=== PATIENT | male | born 1980 | race Two or more races ===

== ENCOUNTER 2018-04-02 11:07 | Outpatient (CLI) | payer OTHER | END 2018-04-02 11:32 | disposition home or self-care (01) | LOC: LAB 11:07 | DX: D68.62 Lupus anticoagulant syndrome (principal); D68.8 Other specified coagulation defects; D50.8 Other iron deficiency anemias; D51.8 Other vitamin B12 deficiency anemias; I10 Essential (primary) hypertension; K90.89 Other intestinal malabsorption; N39.0 Urinary tract infection, site not specified; E03.8 Other specified hypothyroidism ==

== ENCOUNTER 2018-07-23 11:53 | Outpatient (CLI) | payer OTHER | END 2018-07-23 12:08 | disposition home or self-care (01) | LOC: LAB 11:53 | DX: N39.0 Urinary tract infection, site not specified (principal); D51.3 Other dietary vitamin B12 deficiency anemia; D68.8 Other specified coagulation defects; M32.8 Other forms of systemic lupus erythematosus; E55.9 Vitamin D deficiency, unspecified; D50.8 Other iron deficiency anemias; D51.8 Other vitamin B12 deficiency anemias; I10 Essential (primary) hypertension; D55.0 Anemia due to glucose-6-phosphate dehydrogenase [G6PD] deficiency; D51.1 Vitamin B12 deficiency anemia due to selective vitamin B12 malabsorption with proteinuria; D51.0 Vitamin B12 deficiency anemia due to intrinsic factor deficiency; E03.8 Other specified hypothyroidism; E06.3 Autoimmune thyroiditis; K90.89 Other intestinal malabsorption ==

== ENCOUNTER 2019-12-13 09:32 | Outpatient (CLI) | payer OTHER | END 2019-12-13 11:44 | disposition home or self-care (01) | LOC: LAB 09:32 | PROVIDERS: ATTEND Internal Medicine Hematology & Oncology | DX: D51.1 Vitamin B12 deficiency anemia due to selective vitamin B12 malabsorption with proteinuria (principal); D51.3 Other dietary vitamin B12 deficiency anemia; M32.8 Other forms of systemic lupus erythematosus; D68.8 Other specified coagulation defects; E55.9 Vitamin D deficiency, unspecified; K90.89 Other intestinal malabsorption; D50.8 Other iron deficiency anemias; D51.8 Other vitamin B12 deficiency anemias; I10 Essential (primary) hypertension; E03.8 Other specified hypothyroidism ==

== ENCOUNTER → 2019-12-13 | Outpatient (CLI) | payer OTHER | END | disposition home or self-care (01) | LOC: MAMO-SONO 11:45 → SONOGRAMA 11:49 | PROVIDERS: ATTEND Internal Medicine Hematology & Oncology | DX: E03.8 Other specified hypothyroidism (principal); E04.2 Nontoxic multinodular goiter; D51.1 Vitamin B12 deficiency anemia due to selective vitamin B12 malabsorption with proteinuria; D51.3 Other dietary vitamin B12 deficiency anemia; M32.8 Other forms of systemic lupus erythematosus; D68.8 Other specified coagulation defects; E55.9 Vitamin D deficiency, unspecified; K90.89 Other intestinal malabsorption; E06.3 Autoimmune thyroiditis ==

== ENCOUNTER → 2020-03-12 10:00 | Outpatient (CLI) | payer OTHER | END | disposition home or self-care (01) | LOC: LAB 10:00 | PROVIDERS: ATTEND Internal Medicine Hematology & Oncology | DX: M32.8 Other forms of systemic lupus erythematosus (principal); D68.312 Antiphospholipid antibody with hemorrhagic disorder; N39.0 Urinary tract infection, site not specified; R80.8 Other proteinuria; R94.4 Abnormal results of kidney function studies; D51.1 Vitamin B12 deficiency anemia due to selective vitamin B12 malabsorption with proteinuria; D51.3 Other dietary vitamin B12 deficiency anemia; D68.8 Other specified coagulation defects; E55.9 Vitamin D deficiency, unspecified; K90.89 Other intestinal malabsorption ==

== ENCOUNTER 2020-03-12 11:10 | Outpatient (CLI) | payer OTHER | END 2020-03-12 11:19 | disposition home or self-care (01) | LOC: RAD 11:10 → SONOGRAMA 11:10 | PROVIDERS: ATTEND Internal Medicine Hematology & Oncology | DX: N28.89 Other specified disorders of kidney and ureter (principal); K90.89 Other intestinal malabsorption; D51.1 Vitamin B12 deficiency anemia due to selective vitamin B12 malabsorption with proteinuria; D51.3 Other dietary vitamin B12 deficiency anemia; M32.8 Other forms of systemic lupus erythematosus; D68.8 Other specified coagulation defects; E55.9 Vitamin D deficiency, unspecified ==

== ENCOUNTER 2020-04-08 08:22 | Outpatient (CLI) | payer OTHER | END 2020-04-08 08:32 | disposition home or self-care (01) | LOC: NUCLEAR 08:22 | PROVIDERS: ATTEND Internal Medicine Hematology & Oncology | DX: K82.9 Disease of gallbladder, unspecified (principal) | CPT/HCPCS: 78227; A9537 ==

== ENCOUNTER → 2020-04-13 10:33 | Outpatient (CLI) | payer OTHER | END | disposition home or self-care (01) | LOC: LAB 10:33 | PROVIDERS: ATTEND Internal Medicine Hematology & Oncology | DX: D50.8 Other iron deficiency anemias (principal); R79.89 Other specified abnormal findings of blood chemistry; I10 Essential (primary) hypertension; R74.02 Elevation of levels of lactic acid dehydrogenase [LDH]; K76.89 Other specified diseases of liver; C25.9 Malignant neoplasm of pancreas, unspecified; R97.8 Other abnormal tumor markers; R97.0 Elevated carcinoembryonic antigen [CEA]; D51.1 Vitamin B12 deficiency anemia due to selective vitamin B12 malabsorption with proteinuria; D51.3 Other dietary vitamin B12 deficiency anemia; M32.8 Other forms of systemic lupus erythematosus; D68.8 Other specified coagulation defects; E55.9 Vitamin D deficiency, unspecified; K90.89 Other intestinal malabsorption; K82.8 Other specified diseases of gallbladder ==

== ENCOUNTER 2020-04-16 08:11 | Outpatient (CLI) | payer OTHER | END 2020-04-16 08:17 | disposition home or self-care (01) | LOC: MRI 08:11 | PROVIDERS: ATTEND Internal Medicine Hematology & Oncology | DX: Q61.01 Congenital single renal cyst (principal); K82.8 Other specified diseases of gallbladder; Q61.8 Other cystic kidney diseases; D51.1 Vitamin B12 deficiency anemia due to selective vitamin B12 malabsorption with proteinuria; D51.3 Other dietary vitamin B12 deficiency anemia; M32.8 Other forms of systemic lupus erythematosus; D68.8 Other specified coagulation defects; E55.9 Vitamin D deficiency, unspecified; K90.89 Other intestinal malabsorption | CPT/HCPCS: 74183; A9575; 74182 ==

== ENCOUNTER → 2021-03-23 07:02 | Outpatient (CLI) | payer OTHER | END | disposition home or self-care (01) | LOC: LAB 07:02 | PROVIDERS: ATTEND Internal Medicine Hematology & Oncology | DX: I10 Essential (primary) hypertension (principal); R79.9 Abnormal finding of blood chemistry, unspecified; D50.8 Other iron deficiency anemias; R74.02 Elevation of levels of lactic acid dehydrogenase [LDH]; K76.89 Other specified diseases of liver; C25.7 Malignant neoplasm of other parts of pancreas; R97.8 Other abnormal tumor markers; R97.0 Elevated carcinoembryonic antigen [CEA]; D51.1 Vitamin B12 deficiency anemia due to selective vitamin B12 malabsorption with proteinuria; D51.3 Other dietary vitamin B12 deficiency anemia; M32.8 Other forms of systemic lupus erythematosus; D68.8 Other specified coagulation defects; E55.9 Vitamin D deficiency, unspecified; K90.89 Other intestinal malabsorption; K82.8 Other specified diseases of gallbladder ==

== ENCOUNTER → 2021-08-23 09:11 | Outpatient (CLI) | payer OTHER | END | disposition home or self-care (01) | LOC: LAB 09:11 | PROVIDERS: ATTEND Internal Medicine Hematology & Oncology | DX: D50.8 Other iron deficiency anemias (principal); R79.9 Abnormal finding of blood chemistry, unspecified; I10 Essential (primary) hypertension; R74.02 Elevation of levels of lactic acid dehydrogenase [LDH]; K76.89 Other specified diseases of liver; R70.0 Elevated erythrocyte sedimentation rate; C25.9 Malignant neoplasm of pancreas, unspecified; R97.8 Other abnormal tumor markers; R97.0 Elevated carcinoembryonic antigen [CEA]; E55.9 Vitamin D deficiency, unspecified; D51.1 Vitamin B12 deficiency anemia due to selective vitamin B12 malabsorption with proteinuria; D51.3 Other dietary vitamin B12 deficiency anemia; M32.9 Systemic lupus erythematosus, unspecified; D75.1 Secondary polycythemia; D68.8 Other specified coagulation defects; K90.89 Other intestinal malabsorption; K82.9 Disease of gallbladder, unspecified ==

== ENCOUNTER 2021-08-30 07:37 | Outpatient (CLI) | payer OTHER | END 2021-08-30 07:39 | disposition home or self-care (01) | LOC: SONOGRAMA 07:37 | PROVIDERS: ATTEND Internal Medicine Hematology & Oncology | DX: M32.9 Systemic lupus erythematosus, unspecified (principal) ==

== ENCOUNTER 2021-08-30 09:48 | Outpatient (CLI) | payer OTHER | END 2021-08-30 09:51 | disposition home or self-care (01) | LOC: LAB 09:48 | DX: M32.9 Systemic lupus erythematosus, unspecified (principal); D64.9 Anemia, unspecified ==

== ENCOUNTER 2022-03-07 10:32 | Emergency (ER) | payer OTHER ==
[~2022-03-07] VITALS: Ht 172.7 cm; Wt 93.0 kg
[2022-03-07] MEDS ORDERED: HYDROXYCHLOROQ200 MG PO (10:42)
[2022-03-07] MEDS ORDERED: KETO10TA2 PO (14:29)
== END 2022-03-07 14:33 | disposition home or self-care (01) ==
LOC: ER 10:32
DX: R51.9 Headache, unspecified (principal); Z88.0 Allergy status to penicillin; M32.9 Systemic lupus erythematosus, unspecified

== ENCOUNTER 2022-08-22 10:24 | Outpatient (CLI) | payer OTHER ==
[~2022-08-22 10:24] MED LIST: HYDROXYCHLOROQ200 MG PO; KETO10TA2 PO
== END 2022-08-22 10:29 | disposition home or self-care (01) ==
LOC: SONOGRAMA 10:24
PROVIDERS: ATTEND Family Medicine
DX: M25.619 Stiffness of unspecified shoulder, not elsewhere classified (principal)

== ENCOUNTER 2022-08-30 07:24 | Outpatient (CLI) | payer OTHER | END 2022-08-30 07:33 | disposition home or self-care (01) | LOC: LAB 07:24 | PROVIDERS: ATTEND Internal Medicine Hematology & Oncology | DX: D50.8 Other iron deficiency anemias (principal); R79.9 Abnormal finding of blood chemistry, unspecified; I10 Essential (primary) hypertension; R74.02 Elevation of levels of lactic acid dehydrogenase [LDH]; K76.89 Other specified diseases of liver; R70.0 Elevated erythrocyte sedimentation rate; E55.9 Vitamin D deficiency, unspecified; C25.9 Malignant neoplasm of pancreas, unspecified; R97.8 Other abnormal tumor markers; R97.0 Elevated carcinoembryonic antigen [CEA]; D63.1 Anemia in chronic kidney disease; E03.8 Other specified hypothyroidism; D51.1 Vitamin B12 deficiency anemia due to selective vitamin B12 malabsorption with proteinuria; D51.3 Other dietary vitamin B12 deficiency anemia; M32.9 Systemic lupus erythematosus, unspecified; D75.1 Secondary polycythemia; D68.8 Other specified coagulation defects; K90.89 Other intestinal malabsorption; K82.9 Disease of gallbladder, unspecified ==

== ENCOUNTER 2022-09-26 07:39 | Outpatient (CLI) | payer OTHER | END 2022-09-26 07:47 | disposition home or self-care (01) | LOC: SONOGRAMA 07:39 | PROVIDERS: ATTEND Internal Medicine Hematology & Oncology | DX: K80.80 Other cholelithiasis without obstruction (principal); D51.1 Vitamin B12 deficiency anemia due to selective vitamin B12 malabsorption with proteinuria; D51.3 Other dietary vitamin B12 deficiency anemia; M32.9 Systemic lupus erythematosus, unspecified; D75.1 Secondary polycythemia; D68.8 Other specified coagulation defects; E55.9 Vitamin D deficiency, unspecified; K90.89 Other intestinal malabsorption; K82.9 Disease of gallbladder, unspecified ==

== ENCOUNTER 2022-10-14 09:45 | Outpatient (CLI) | payer OTHER | END 2022-10-14 09:53 | disposition home or self-care (01) | LOC: SONOGRAMA 09:45 | PROVIDERS: ATTEND Physical Medicine & Rehabilitation | DX: M75.31 Calcific tendinitis of right shoulder (principal) ==

== ENCOUNTER 2023-02-10 07:18 | Outpatient (CLI) | payer OTHER | END 2023-02-10 07:19 | disposition home or self-care (01) | LOC: LAB 07:18 | PROVIDERS: ATTEND Internal Medicine Hematology & Oncology | DX: M32.9 Systemic lupus erythematosus, unspecified (principal); D64.9 Anemia, unspecified; D50.8 Other iron deficiency anemias; R79.9 Abnormal finding of blood chemistry, unspecified; I10 Essential (primary) hypertension; R74.02 Elevation of levels of lactic acid dehydrogenase [LDH]; K76.89 Other specified diseases of liver; R70.0 Elevated erythrocyte sedimentation rate; D51.8 Other vitamin B12 deficiency anemias; E55.9 Vitamin D deficiency, unspecified; D51.1 Vitamin B12 deficiency anemia due to selective vitamin B12 malabsorption with proteinuria; D51.3 Other dietary vitamin B12 deficiency anemia; M32.10 Systemic lupus erythematosus, organ or system involvement unspecified; M35.1 Other overlap syndromes; K80.20 Calculus of gallbladder without cholecystitis without obstruction; D75.1 Secondary polycythemia; D68.8 Other specified coagulation defects; K90.89 Other intestinal malabsorption ==

== ENCOUNTER 2023-03-20 07:30 | Outpatient (CLI) | payer OTHER | END 2023-03-20 07:43 | disposition home or self-care (01) | LOC: MRI 07:30 | DX: M75.52 Bursitis of left shoulder (principal); Z88.0 Allergy status to penicillin | CPT/HCPCS: 73218 ==

== ENCOUNTER → 2023-06-14 07:14 | Outpatient (CLI) | payer OTHER ==
[2023-06-14 08:10] LABS: HEMATOCRIT 45.6 % (39.0-48.0); MEAN CELL VOLUME 90.4 fL (80.0-100.00); MEAN CORPUSCULAR HEMOGLOBIN 30.9 pg (27.00-32.0); MEAN CORPUSCULAR HGB CONC 34.2 g/dl (32.0-36.0); PLATELET COUNT 172 K/uL (150-450); RED BLOOD COUNT 5.04 M/uL (4.00-6.00); RED CELL DISTRIBUTION WIDTH 13.8 % (11.5-14.5)
[2023-06-14 08:11] LABS: HEMOGLOBIN 15.6 g/dL (13-16.00)
[2023-06-14 08:21] LABS: ERYTHROCYTE SEDIMENTATION RATE 6 mm/hr
[2023-06-14 08:51] LABS: ALBUMIN 4.1 gm/dL (3.4-5.0); BILIRUBIN TOTAL 0.52 mg/dL (0.3-1.2); CALCIUM 9.2 mg/dL (8.5-10.1); CREATININE SERUM 1.05 mg/dL (0.70-1.30); GFR 77.46; GLOBULINA 3.3 G/DL (2.4-3.5); POTASSIUM 4.03 mEq/L (3.5-5.1); TOTAL PROTEIN 7.4 gm/dL (6.4-8.2)
[2023-06-14 10:53] LABS: FOLIC ACID 14.37 ng/ml (4.78-20)
[2023-06-14 11:38] LABS: MANUAL PLATELET COUNT 308
[2023-06-14 11:39] LABS: PLATELET ESTIMATE NORMAL (NORMAL)
== END | disposition home or self-care (01) ==
LOC: LAB 07:14
PROVIDERS: ATTEND Internal Medicine Hematology & Oncology
DX: D50.8 Other iron deficiency anemias (principal); R79.9 Abnormal finding of blood chemistry, unspecified; I10 Essential (primary) hypertension; R74.02 Elevation of levels of lactic acid dehydrogenase [LDH]; K76.89 Other specified diseases of liver; R70.0 Elevated erythrocyte sedimentation rate; D51.8 Other vitamin B12 deficiency anemias; D51.1 Vitamin B12 deficiency anemia due to selective vitamin B12 malabsorption with proteinuria; D51.3 Other dietary vitamin B12 deficiency anemia; M32.10 Systemic lupus erythematosus, organ or system involvement unspecified; M35.1 Other overlap syndromes; K80.20 Calculus of gallbladder without cholecystitis without obstruction; D75.1 Secondary polycythemia; D68.8 Other specified coagulation defects; E55.9 Vitamin D deficiency, unspecified; K90.89 Other intestinal malabsorption; Z88.0 Allergy status to penicillin